=== PATIENT | female | born 1985 | race African-American/Black ===

== ENCOUNTER 2021-12-11 06:24 | Emergency (ER) | payer OTHER ==
[~2021-12-11] VITALS: Ht 157.5 cm; Wt 69.0 kg
[2021-12-11] MEDS ORDERED: no home meds (06:40)
--- NOTE | 2021-12-11 06:44 | NUR ---
Tooth broken off- pt unable to get into a dentist anytime soon. limited transportation
[2021-12-11] MEDS ORDERED: penicillin V potassium 500mg tablet PO ONE (07:00)
[2021-12-11] MEDS ORDERED: HYDROcodone/acetaminophen 10/325mg tab PO ONE (07:00)
[2021-12-11] MEDS ORDERED: LIDOcaine 1% W/epiNEPHrine 1:100,000 20ml vial SQ ONE (07:00)
[2021-12-11] MEDS ORDERED: LIDOcaine 1% W/epiNEPHrine 1:100,000 20ml vial IJ ONE (07:15)
[2021-12-11] MEDS ORDERED: LIDOcaine Viscous 15ml cup MM PRN (07:15)
[2021-12-11] MEDS ORDERED: LIDOcaine 40mg/ml topical solution MM ONE (07:15)
[2021-12-11] MEDS ORDERED: LIDOcaine 1% w/EPI 1:100,000 30ml vial (MDV) IJ ONE (07:20)
--- NOTE | 2021-12-11 07:22 | NUR ---
Unable to find lido with epi 1%, called pharmacy, changed to another drawer, found med. Called on 4% lidocaine, have to obtain from pharmacy, told to wait 10min and come get it.
[2021-12-11] MEDS ORDERED: HYDR-3972 PO (07:30)
[2021-12-11] MEDS ORDERED: PENI500T2 PO (07:30)
[2021-12-11 07:37] VITALS: BP 139/101
--- NOTE | 2021-12-11 07:38 | NUR ---
Pain relief obtained, will take BP meds at home
== END 2021-12-11 07:45 | disposition home or self-care (01) ==
LOC: ER 06:26
DX: S02.5XXB Fracture of tooth (traumatic), initial encounter for open fracture (principal); K08.89 Other specified disorders of teeth and supporting structures; I10 Essential (primary) hypertension; Z79.2 Long term (current) use of antibiotics; Z79.899 Other long term (current) drug therapy; X58.XXXA Exposure to other specified factors, initial encounter; Y93.89 Activity, other specified; Y92.89 Other specified places as the place of occurrence of the external cause; Y99.8 Other external cause status
CPT/HCPCS: 64400; 99284

== ENCOUNTER 2021-12-26 11:16 | Emergency (ER) | payer OTHER ==
[~2021-12-26] VITALS: Ht 157.5 cm; Wt 76.5 kg
[~2021-12-26 11:16] MED LIST: HYDR-3972 PO; PENI500T2 PO; no home meds
[2021-12-26 11:19] VITALS: BP 174/97
== END 2021-12-26 12:49 | disposition home or self-care (01) ==
LOC: ER 11:17
DX: G56.32 Lesion of radial nerve, left upper limb (principal); M21.332 Wrist drop, left wrist; I10 Essential (primary) hypertension; Z79.2 Long term (current) use of antibiotics; Z79.899 Other long term (current) drug therapy
CPT/HCPCS: 99281